=== PATIENT | male | born 1985 | race Caucasian/White ===

== ENCOUNTER 2017-08-06 06:38 | Emergency (ER) | payer SELFPAY ==
[2017-08-06 08:15] LABS: UA SPECIFIC GRAVITY 1.015 (1.005-1.035); microscopic required? YES; urine erythrocyte 3+ (NEGATIVE)
[2017-08-06 09:38] VITALS: BP 128/75
== END 2017-08-06 10:51 | disposition home or self-care (01) ==
LOC: ED 06:38
PROVIDERS: Emergency Medicine Emergency Medical Services
DX: N20.1 Calculus of ureter (principal); N23 Unspecified renal colic
CPT/HCPCS: J2270; J2405; J7030